=== PATIENT | female | born 2000 | race Caucasian/White ===

== ENCOUNTER → 2024-01-21 16:22 | Outpatient (REF) | payer OTHER, SELFPAY | LOC: PNTC 16:22 | PROVIDERS: ATTENDING PHYSICIAN Obstetrics & Gynecology | DX: Z36.0 Encounter for antenatal screening for chromosomal anomalies (principal); Z36.82 Encounter for antenatal screening for nuchal translucency | CPT/HCPCS: 76805 ==

== ENCOUNTER → 2024-03-17 12:03 | Outpatient (REF) | payer OTHER, SELFPAY | LOC: REG 12:03 | PROVIDERS: ATTENDING PHYSICIAN Obstetrics & Gynecology | DX: Z34.03 Encounter for supervision of normal first pregnancy, third trimester (principal) | CPT/HCPCS: 36415; 86850; 86900; 86901; J2790 ==

== ENCOUNTER 2024-05-30 17:51 | Observation (INO) | payer OTHER, SELFPAY ==
[2024-05-30 17:53] VITALS: BMI 29.2
[2024-05-30 18:02] VITALS: BP 121/84
== END 2024-05-30 21:03 | disposition home or self-care (01) ==
LOC: LDRP 17:51
PROVIDERS: ADMITTING PHYSICIAN Obstetrics & Gynecology
DX: O47.1 False labor at or after 37 completed weeks of gestation (principal); R10.9 Unspecified abdominal pain; R06.02 Shortness of breath; O99.013 Anemia complicating pregnancy, third trimester; D64.9 Anemia, unspecified; Z3A.39 39 weeks gestation of pregnancy; Z28.310 Unvaccinated for COVID-19
CPT/HCPCS: 59899; G0378

== ENCOUNTER 2024-06-04 03:09 | Inpatient (IN) | payer OTHER, SELFPAY ==
[2024-06-04 03:15] VITALS: BMI 29.2
[2024-06-04 03:24] VITALS: BP 156/108
[2024-06-04] MEDS: LR 1000 IV ×3 (03:30→11:15)
[2024-06-04 03:53] LABS: % Basophils 0.5 % (0-2); % Immature Granulocytes 0.5 % (0-0.5); % Lymphocytes 29.9 % (20.5-51.1); % Monocytes 9.8 % (1.7-9.3); % Neutrophils 58.3 % (42.2-75.2); Absolute Basophils 0.1 10^3/uL (0-0.2); Absolute Eosinophils 0.1 10^3/uL (0-0.7); Absolute Immature Granulocytes 0.1 10^3/uL (0-0.05); Absolute Lymphocytes 3.3 10^3/uL (1.2-3.4); Absolute Monocytes 1.1 10^3/uL (0.1-0.6); Absolute Neutrophils 6.3 10^3/uL (1.4-6.5); Hematocrit 35.2 % (37.0-47.0); Hemoglobin 12.7 g/dL (12.0-16.0); Mean Corp Hgb Conc. 36.1 g/dL (33.0-37.0); Mean Corpuscular Hgb 28.9 pg (27.0-31.0); Mean Corpuscular Volume 80.2 fL (81.0-99.0); Mean Platelet Volume 12.5 fL (7.4-10.4); Nucleated Red Blood Cells % 0 %; Platelet Count 218 10^3/uL (130-400); Red Blood Cell Count 4.39 10^6/uL (4.20-5.40); Red Cell Dist. Width 18.6 % (11.5-14.5); White Blood Cell Count 10.9 10^3/uL (4.8-10.8)
[2024-06-04 04:13] LABS: ALT (SGPT) 11 U/L (0-35); AST (SGOT) 20 U/L (14-36); Albumin 3.4 g/dl (3.5-5.0); Alkaline Phosphatase 215 U/L (38-126); Blood Urea Nitrogen 11 mg/dl (7-17); Calcium 9.7 mg/dl (8.4-10.2); Carbon Dioxide 22 mmol/L (22-30); Chloride 105 mmol/L (98-107); Estimated Creatinine Clearance 120 ml/min; Glucose 90 mg/dl (70-99); Potassium 4.5 mmol/L (3.5-5.1); Sodium 139 mmol/L (135-145); Total Bilirubin 0.3 mg/dl (0.2-1.3); eGFR > 60.00
[2024-06-04] MEDS: SUBLIMAZE 100 MCG EPIDURAL (04:29)
[2024-06-04] MEDS: FENTANYL/BUPIVACAINE 100 EPIDURAL (04:29)
[2024-06-04 14:30] LABS: Protein/creatinine Ratio 0.1; Urine Protein 11 mg/dl
[2024-06-04] MEDS: MOTRIN 600 MG PO ×2 (15:07→20:51)
[2024-06-05] MEDS: MOTRIN 600 MG PO ×4 (02:53→21:50)
[2024-06-05] MEDS: TYLENOL 650 MG PO ×4 (02:54→21:50)
[2024-06-05 05:00] LABS: Hematocrit 25.1 % (37.0-47.0); Hemoglobin 8.5 g/dL (12.0-16.0); Mean Corp Hgb Conc. 33.9 g/dL (33.0-37.0); Mean Corpuscular Hgb 27.4 pg (27.0-31.0); Mean Platelet Volume 12.6 fL (7.4-10.4); Platelet Count 162 10^3/uL (130-400); Red Cell Dist. Width 16.8 % (11.5-14.5); White Blood Cell Count 16.1 10^3/uL (4.8-10.8)
[2024-06-05 05:13] LABS: ALT (SGPT) 11 U/L (0-35); AST (SGOT) 27 U/L (14-36)
[2024-06-05] MEDS: PRENATAL PLUS 1 TABLET PO (07:38)
[2024-06-05] MEDS: FEOSOL 325 MG PO (09:53)
[2024-06-05] MEDS: SENOKOT-S 1 TABLET PO (09:55)
[2024-06-06] MEDS: MOTRIN 600 MG PO (03:53)
[2024-06-06] MEDS: TYLENOL 650 MG PO (03:53)
[2024-06-06] MEDS: SENOKOT-S 1 TABLET PO (07:22)
[2024-06-06] MEDS: FEOSOL 325 MG PO (07:22)
[2024-06-06] MEDS: PRENATAL PLUS 1 TABLET PO (07:22)
[2024-06-08 11:25] LABS: Syphilis/T. pallidum Ab Reflex Negative (Negative)
== END 2024-06-06 11:06 | disposition home or self-care (01) | DRG 768 ==
LOC: LDRP 03:09
PROVIDERS: Obstetrics & Gynecology; ADMITTING PHYSICIAN Obstetrics & Gynecology
PROC: 10E0XZZ Delivery of Products of Conception, External Approach (ICD-10-PCS; 2024-06-04)
PROC: 4A1HXCZ Monitoring of Products of Conception, Cardiac Rate, External Approach (ICD-10-PCS; 2024-06-04)
PROC: 0KQM0ZZ Repair Perineum Muscle, Open Approach (ICD-10-PCS; 2024-06-04)
PROC: 0UBMXZZ Excision of Vulva, External Approach (ICD-10-PCS; 2024-06-04)
DX: O48.0 Post-term pregnancy (principal); Z37.0 Single live birth; O70.1 Second degree perineal laceration during delivery; O99.892 Other specified diseases and conditions complicating childbirth; Z3A.40 40 weeks gestation of pregnancy
CPT/HCPCS: 88307; 54150; 80053; 82570; 83789; 84156; 84450; 84460; 85025; 85027; 86780; 86850; 86870; 86900; 86901